=== PATIENT | female | born 2000 | race Two or more races ===

== ENCOUNTER 2024-05-16 07:53 | Emergency (ER) | payer OTHER ==
[2024-05-16 08:49] VITALS: BMI 32.2
[2024-05-16] MEDS ORDERED: ONDANSETRON 4 MG/2 ML VIAL ONE (08:59)
[2024-05-16] MEDS ORDERED: MAG HYDROX/AL HYDROX/SIMETH 30 ML UNIT-DOSE CUP ONE (08:59)
[2024-05-16] MEDS ORDERED: FAMOTIDINE 20 MG/50 ML IVPB 20 MG/50 ML MG IVPB ONE (08:59)
[2024-05-16] MEDS: ONDANSETRON 4 MG/2 ML VIAL IVPUSH ONE (09:05)
[2024-05-16] MEDS: MAG HYDROX/AL HYDROX/SIMETH -MYLANTA- ORAL SUSPENSION PO ONE (09:05)
[2024-05-16] MEDS: FAMOTIDINE 20 MG/50 ML IVPB 20 MG/50 ML MG IVPB ONE (09:10)
[2024-05-16 09:11] LABS: BASO % 0.4 % (0-2.0); EOS % 0.1 % (0-4.5); HEMOGLOBIN 12.4 GM/dL (10.7-15.3); LYMPH % 27.6 % (8-40); MCHC 32.7 g/dl (32.0-36.0); MEAN CELL VOLUME 91.8 fl (80-96); MEAN PLT VOLUME 7.5 fl (7.5-11.1); MONO % 6.8 % (3.8-10.2); NEUT % 65.1 % (42.8-82.8); PLATELET COUNT 315 10^3/uL (134-434); RBC 4.14 M/mm3 (3.60-5.2); RDW 13.5 % (11.6-15.6); WHITE BLOOD COUNT 8.8 K/mm3 (4.0-10.0)
[2024-05-16 09:30] LABS: POTASSIUM 3.8 mmol/L (3.5-5.1)
[2024-05-16 09:32] LABS: CALCIUM 9.5 mg/dL (8.5-10.1)
[2024-05-16 09:33] LABS: ALBUMIN 3.8 g/dl (3.4-5.0); BLOOD UREA NITROGEN 7.9 mg/dL (7-18)
[2024-05-16 09:36] LABS: CREATININE 0.9 mg/dL (0.55-1.3)
[2024-05-16 09:37] LABS: BILIRUBIN,TOTAL 0.7 mg/dL (0.2-1); TOT PROT 7.7 g/dl (6.4-8.2)
[2024-05-16] MEDS: LACTATED RINGERS SOLUTION 1000 ML INFUS.BAG IV ONE (09:39)
[2024-05-16 11:52] VITALS: BP 118/77; PULSE 60; RESP 16; TEMP 98.3
== END 2024-05-16 11:31 | disposition home or self-care (01) ==
LOC: JER 07:53
PROC: 3E033GC Introduction of Other Therapeutic Substance into Peripheral Vein, Percutaneous Approach (ICD-10-PCS; principal; 2024-05-16)
PROC: 3E033GC Introduction of Other Therapeutic Substance into Peripheral Vein, Percutaneous Approach (ICD-10-PCS; 2024-05-16)
DX: R10.13 Epigastric pain (principal); R11.2 Nausea with vomiting, unspecified
CPT/HCPCS: 36415; 71046-TC-FY; 80053; 83690; 84703; 85025; 93005; 93010; 96365; 96375; 99285-25